=== PATIENT | male | born 1950 | race Caucasian/White ===

== ENCOUNTER 2016-10-07 16:57 | Emergency (ER) | payer MEDICARE ==
[~2016-10-07] VITALS: Ht 165.1 cm; Wt 69.5 kg
[2016-10-07] MEDS ORDERED: ATORVASTATIN CA10 MG PO (17:18)
[2016-10-07] MEDS ORDERED: ALFUZOSIN HCL E10 MG PO (17:19)
[2016-10-07] MEDS ORDERED: FINASTERIDE5 MG PO (17:20)
[2016-10-07] MEDS ORDERED: DEPO-TESTOS100 MG/ML IM (17:21)
[2016-10-07] MEDS ORDERED: ULTRAM50 M1 PO (17:49)
[2016-10-07] MEDS ORDERED: BENADRYL 50MG C50 MG PO (17:49)
[2016-10-07] MEDS ORDERED: BENADRY2 EX (17:49)
[2016-10-07 18:09] VITALS: BP 159/77
== END 2016-10-07 18:09 | disposition home or self-care (01) ==
LOC: ED 16:57
DX: S50.862A Insect bite (nonvenomous) of left forearm, initial encounter (principal); W57.XXXA Bitten or stung by nonvenomous insect and other nonvenomous arthropods, initial encounter; Y92.009 Unspecified place in unspecified non-institutional (private) residence as the place of occurrence of the external cause

== ENCOUNTER 2021-12-26 15:29 | Inpatient (IN) | payer MEDICARE ==
[~2021-12-26] VITALS: Ht 165.1 cm; Wt 54.5 kg
[2021-12-26] VITALS (13 sets, daily range): BP systolic 107–205; BP diastolic 52–92
[~2021-12-26 15:29] MED LIST: ALFUZOSIN HCL E10 MG PO; ATORVASTATIN CA10 MG PO; BENADRY2 EX; BENADRYL 50MG C50 MG PO; DEPO-TESTOS100 MG/ML IM; FINASTERIDE5 MG PO; ULTRAM50 M1 PO
[2021-12-26 15:59] LABS: HEMATOCRIT 48.1 % (39.0-50.0); IMMATURE GRANULOCYTES 0.1 % (0.0-5.0); MEAN CELL VOLUME 92.5 fL CALC (80.0-100.0); MEAN CORPUSCULAR HGB 30.8 pG CALC (26.0-32.0); MEAN CORPUSCULAR HGB CONC 33.3 g/dL CAL (32.0-36.0); NEUT# 6.45 thou/uL (1.82-7.42); RED BLOOD COUNT 5.2 mill/uL (4.70-6.10); RED CELL DISTRI WIDTH 12.1 % (11.5-15.5)
[2021-12-26 16:13] LABS: ALBUMIN 3.7 g/dL (3.2-5.0); ALKALINE PHOSPHATASE 83 u/l (38-126); ANION GAP 9 (6-22 (CALC)); BILIRUBIN, TOTAL 0.5 mg/dL (0.0-1.4); BUN 21 mg/dL (8-23); BUN/CREATININE RATIO 25 (12-20 (CALC)); CARBON DIOXIDE 35 mmol/l (22-30); CHLORIDE 102 mmol/l (95-108); CREATININE 0.9 mg/dL (0.7-1.3); GFR FOR AFR.AMER. > 60 ML/MIN (>=60 (CALC)); GFR OTHER RACES > 60 ML/MIN (>=60 (CALC)); POTASSIUM 3.6 mmol/l (3.5-5.1); SGOT/AST 20 u/l (19-48); SODIUM 142 mmol/l (137-146); TOTAL PROTEIN 6.3 g/dL (6.3-8.2)
[2021-12-27] VITALS (8 sets, daily range): BP systolic 103–144; BP diastolic 54–70
[2021-12-28 00:14] VITALS: BP 115/57
[2021-12-28 04:45] VITALS: BP 121/63
[2021-12-28 10:40] VITALS: BP 145/75
[2021-12-28 15:58] VITALS: BP 122/62
[2021-12-28 16:37] VITALS: BP 122/52
[2021-12-28 19:05] VITALS: BP 121/61
[2021-12-29 00:14] VITALS: BP 125/60
[2021-12-29 04:54] VITALS: BP 119/57
[2021-12-29 05:17] LABS: HEMATOCRIT 43.3 % (39.0-50.0); HEMOGLOBIN 14.2 g/dl (14.0-18.0); MEAN CELL VOLUME 93.9 fL CALC (80.0-100.0); MEAN CORPUSCULAR HGB 30.8 pG CALC (26.0-32.0); MEAN CORPUSCULAR HGB CONC 32.8 g/dL CAL (32.0-36.0); RED BLOOD COUNT 4.61 mill/uL (4.70-6.10); RED CELL DISTRI WIDTH 12.1 % (11.5-15.5)
[2021-12-29 05:40] LABS: BUN 22 mg/dL (8-23); BUN/CREATININE RATIO 31 (12-20 (CALC)); CARBON DIOXIDE 36 mmol/l (22-30); CHLORIDE 101 mmol/l (95-108); CREATININE 0.7 mg/dL (0.7-1.3); GFR FOR AFR.AMER. > 60 ML/MIN (>=60 (CALC)); GFR OTHER RACES > 60 ML/MIN (>=60 (CALC)); MAGNESIUM 2.4 mg/dL (1.6-2.3); SODIUM 138 mmol/l (137-146)
[2021-12-29 05:42] LABS: ANION GAP 6 (6-22 (CALC)); POTASSIUM 4.5 mmol/l (3.5-5.1)
[2021-12-29 06:27] VITALS: BP 119/57
[2021-12-29] MEDS ORDERED: PREDNISONE10 MG PO (13:36)
[2021-12-29] MEDS ORDERED: ZITHROMAX250 MG PO (13:37)
[2021-12-29 14:47] VITALS: BP 119/57
== END 2021-12-29 15:41 | disposition home or self-care (01) | DRG 190 ==
LOC: ED 15:29 → ED-I 16:26 → ED 16:44 → MS2 16:45
PROVIDERS: Family Medicine; ADMIT Internal Medicine; ATTEND Internal Medicine
DX: J43.9 Emphysema, unspecified (principal); J96.01 Acute respiratory failure with hypoxia; J96.02 Acute respiratory failure with hypercapnia; C85.90 Non-Hodgkin lymphoma, unspecified, unspecified site; I10 Essential (primary) hypertension; F17.210 Nicotine dependence, cigarettes, uncomplicated; Z86.73 Personal history of transient ischemic attack (TIA), and cerebral infarction without residual deficits; Z20.822 Contact with and (suspected) exposure to COVID-19
CPT/HCPCS: G0378; J1650

== ENCOUNTER 2022-01-09 02:11 | Inpatient (IN) | payer MEDICARE ==
[~2022-01-09] VITALS: Ht 165.1 cm; Wt 54.1 kg
[2022-01-09] VITALS (82 sets, daily range): BP systolic 91–183; BP diastolic 48–116
[~2022-01-09 02:11] MED LIST changes: +PREDNISONE10 MG PO; +ZITHROMAX250 MG PO
[2022-01-09 02:44] LABS: HEMATOCRIT 47.8 % (39.0-50.0); HEMOGLOBIN 15.1 g/dl (14.0-18.0); IMMATURE GRANULOCYTES 0.6 % (0.0-5.0); MEAN CELL VOLUME 97.4 fL CALC (80.0-100.0); MEAN CORPUSCULAR HGB 30.8 pG CALC (26.0-32.0); MEAN CORPUSCULAR HGB CONC 31.6 g/dL CAL (32.0-36.0); NEUT# 19.89 thou/uL (1.82-7.42); RED BLOOD COUNT 4.91 mill/uL (4.70-6.10); RED CELL DISTRI WIDTH 12.8 % (11.5-15.5)
[2022-01-09 03:00] LABS: ALBUMIN 3.6 g/dL (3.2-5.0); ALKALINE PHOSPHATASE 91 u/l (38-126); ANION GAP 8 (6-22 (CALC)); BILIRUBIN, TOTAL 0.7 mg/dL (0.0-1.4); BUN 18 mg/dL (8-23); BUN/CREATININE RATIO 21 (12-20 (CALC)); CARBON DIOXIDE 31 mmol/l (22-30); CHLORIDE 108 mmol/l (95-108); CREATININE 0.9 mg/dL (0.7-1.3); GFR FOR AFR.AMER. > 60 ML/MIN (>=60 (CALC)); GFR OTHER RACES > 60 ML/MIN (>=60 (CALC)); POTASSIUM 4.4 mmol/l (3.5-5.1); SODIUM 143 mmol/l (137-146); TOTAL PROTEIN 5.7 g/dL (6.3-8.2)
[2022-01-09 03:01] LABS: SGOT/AST 37 u/l (19-48)
[2022-01-09 03:11] LABS: MYOGLOBIN 38 ng/mL (0 - 121)
[2022-01-09 03:20] LABS: URINE BILIRUBIN - DIPSTICK NEGATIVE (NEGATIVE); URINE BLOOD DIPSTICK NEGATIVE (NEGATIVE); URINE COLOR YELLOW; URINE GLUCOSE - DIPSTICK NEGATIVE (NEGATIVE); URINE KETONE NEGATIVE (NEGATIVE); URINE LEUK ESTERASE NEGATIVE (NEGATIVE); URINE PH 5.5 (4.5-8.0); URINE PROTEIN - DIPSTICK NEGATIVE (NEG-TRACE); URINE SPECIFIC GRAVITY >=1.030; URINE UROBILINOGEN - DIPSTICK 0.2 E.U./dL (0.2)
[2022-01-09 03:52] LABS: URINE NITRITE - DIPSTICK NEGATIVE (Negative)
[2022-01-10] VITALS (33 sets, daily range): BP systolic 98–137; BP diastolic 47–87
[2022-01-10 05:18] LABS: HEMOGLOBIN 13.3 g/dl (14.0-18.0); IMMATURE GRANULOCYTES 0.7 % (0.0-5.0); MEAN CELL VOLUME 95.3 fL CALC (80.0-100.0); MEAN CORPUSCULAR HGB CONC 32.5 g/dL CAL (32.0-36.0); NEUT# 17.18 thou/uL (1.82-7.42); RED BLOOD COUNT 4.29 mill/uL (4.70-6.10)
[2022-01-10 05:29] LABS: HEMATOCRIT 40.9 % (39.0-50.0)
[2022-01-10 05:55] LABS: ALBUMIN 3.3 g/dL (3.2-5.0); ALKALINE PHOSPHATASE 78 u/l (38-126); ANION GAP 9 (6-22 (CALC)); BUN 21 mg/dL (8-23); BUN/CREATININE RATIO 30 (12-20 (CALC)); CARBON DIOXIDE 27 mmol/l (22-30); CHLORIDE 107 mmol/l (95-108); CREATININE 0.7 mg/dL (0.7-1.3); GFR FOR AFR.AMER. > 60 ML/MIN (>=60 (CALC)); GFR OTHER RACES > 60 ML/MIN (>=60 (CALC)); MAGNESIUM 2.2 mg/dL (1.6-2.3); POTASSIUM 4.4 mmol/l (3.5-5.1); SGOT/AST 29 u/l (19-48); SODIUM 139 mmol/l (137-146); TOTAL PROTEIN 5.2 g/dL (6.3-8.2)
[2022-01-10 06:00] LABS: BILIRUBIN, TOTAL 0.4 mg/dL (0.0-1.4)
== END 2022-01-10 09:45 | disposition short-term general hospital (02) | DRG 280 ==
LOC: ED 02:11 → ED-I 04:50 → ED 05:11 → ICU 05:12
PROVIDERS: Emergency Medicine; ADMIT Internal Medicine; ATTEND Internal Medicine
PROC: 5A09357 Assistance with Respiratory Ventilation, Less than 24 Consecutive Hours, Continuous Positive Airway Pressure (ICD-10-PCS; principal; 2022-01-09)
DX: I21.4 Non-ST elevation (NSTEMI) myocardial infarction (principal); J96.21 Acute and chronic respiratory failure with hypoxia; J96.22 Acute and chronic respiratory failure with hypercapnia; C85.90 Non-Hodgkin lymphoma, unspecified, unspecified site; J43.9 Emphysema, unspecified; F17.210 Nicotine dependence, cigarettes, uncomplicated; Z99.81 Dependence on supplemental oxygen; Z86.73 Personal history of transient ischemic attack (TIA), and cerebral infarction without residual deficits
CPT/HCPCS: G0378; J1650; Q9967

== ENCOUNTER 2022-09-20 06:07 | Day surgery (SDC) | payer MEDICARE ==
[~2022-09-20] VITALS: Ht 165.1 cm; Wt 61.2 kg
[~2022-09-20 06:07] MED LIST changes: +BAYER ASPIRIN E81 MG PO; +GABAPENTIN300 M2; +IPRATROPIU0.5 MG/3 M IN; +LIPITOR40 M1 PO; +PROSCAR5 MG PO; +TRELSTAR DEPO3.75 MG
[2022-09-20] MEDS ORDERED: TRELEGY ELLIPTA1 AER IN (06:54)
[2022-09-20 08:23] VITALS: BP 151/82
== END 2022-09-20 08:40 | disposition home or self-care (01) ==
LOC: ENDO 06:07 → ORM 07:30 → ENDO 08:40
PROVIDERS: ATTEND Internal Medicine Gastroenterology
PROC: 0DBN8ZX Excision of Sigmoid Colon, Via Natural or Artificial Opening Endoscopic, Diagnostic (ICD-10-PCS; principal; 2022-09-20)
PROC: 0DBL8ZX Excision of Transverse Colon, Via Natural or Artificial Opening Endoscopic, Diagnostic (ICD-10-PCS; 2022-09-20)
DX: Z12.11 Encounter for screening for malignant neoplasm of colon (principal); D12.3 Benign neoplasm of transverse colon; K63.5 Polyp of colon; K57.30 Diverticulosis of large intestine without perforation or abscess without bleeding; K64.8 Other hemorrhoids; K64.4 Residual hemorrhoidal skin tags; Z86.010 Personal history of colon polyps

== ENCOUNTER 2023-03-02 07:52 | Inpatient (IN) | payer MEDICARE ==
[2023-03-02] VITALS (15 sets, daily range): BP systolic 91–153; BP diastolic 43–62
[~2023-03-02] VITALS: Ht 152.4 cm; Wt 64.0 kg
[~2023-03-02 07:52] MED LIST changes: +TRELEGY ELLIPTA1 AER IN
[2023-03-02 08:14] LABS: BASO% 0.1 % (0-3); HEMATOCRIT 41.2 % (39.0-50.0); HEMOGLOBIN 13.8 g/dl (14.0-18.0); IMMATURE GRANULOCYTES 0.3 % (0.0-5.0); LYMPH% 4.7 % (15-41); MEAN CELL VOLUME 91.6 fL CALC (80.0-100.0); MEAN CORPUSCULAR HGB 30.7 pG CALC (26.0-32.0); MEAN CORPUSCULAR HGB CONC 33.5 g/dL CAL (32.0-36.0); MONO% 2.1 % (2-13); NEUT# 10.97 thou/uL (1.82-7.42); NEUT% 92.8 % (42-76); RED BLOOD COUNT 4.5 mill/uL (4.70-6.10); RED CELL DISTRI WIDTH 12.3 % (11.5-15.5)
[2023-03-02] MEDS ORDERED: ASPIRIN325 MG PO (08:19)
[2023-03-02 09:15] LABS: ALBUMIN 3.6 g/dL (3.2-5.0); ALKALINE PHOSPHATASE 72 u/l (38-126); ANION GAP 11 (6-22 (CALC)); BUN 26 mg/dL (8-23); BUN/CREATININE RATIO 26 (12-20 (CALC)); CARBON DIOXIDE 27 mmol/l (22-30); CHLORIDE 102 mmol/l (95-108); GFR FOR AFR.AMER. > 60 ML/MIN (>=60 (CALC)); GFR OTHER RACES > 60 ML/MIN (>=60 (CALC)); LIPASE < 10 u/l (23-300); POTASSIUM 4.3 mmol/l (3.5-5.1); SGOT/AST 37 u/l (19-48); SODIUM 136 mmol/l (137-146); TOTAL PROTEIN 5.6 g/dL (6.3-8.2)
[2023-03-02 09:21] LABS: BILIRUBIN, TOTAL 2.4 mg/dL (0.2-1.3)
[2023-03-02 13:16] LABS: URINE BLOOD DIPSTICK Trace-lysed (NEGATIVE); URINE GLUCOSE - DIPSTICK Negative (NEGATIVE); URINE KETONE Negative (NEGATIVE); URINE LEUK ESTERASE Negative (NEGATIVE); URINE PROTEIN - DIPSTICK 100 mg/dL (NEG-TRACE); URINE SPECIFIC GRAVITY >=1.030; URINE UROBILINOGEN - DIPSTICK 0.2 E.U./dL (0.2)
[2023-03-02 13:23] LABS: URINE COLOR Dark yellow; URINE NITRITE - DIPSTICK Positive (Negative)
[2023-03-02 13:39] LABS: URINE HYALINE CAST FEW lpf (NONE-RARE); URINE RBC 0-2 RBC/hpf (0-5); URINE TRANSITIONAL EPI. CELLS FEW hpf
[2023-03-03 00:33] VITALS: BP 93/48
[2023-03-03 04:44] VITALS: BP 91/52
[2023-03-03 06:23] LABS: BASO% 0.1 % (0-3); HEMOGLOBIN 12.9 g/dl (14.0-18.0); IMMATURE GRANULOCYTES 1.2 % (0.0-5.0); LYMPH% 3.9 % (15-41); MEAN CELL VOLUME 93.9 fL CALC (80.0-100.0); MEAN CORPUSCULAR HGB 30.3 pG CALC (26.0-32.0); MEAN CORPUSCULAR HGB CONC 32.3 g/dL CAL (32.0-36.0); MONO% 3.2 % (2-13); NEUT# 12.11 thou/uL (1.82-7.42); NEUT% 91.6 % (42-76); RED BLOOD COUNT 4.26 mill/uL (4.70-6.10); RED CELL DISTRI WIDTH 12.4 % (11.5-15.5)
[2023-03-03 06:51] VITALS: BP 102/51
[2023-03-03 09:29] LABS: ANION GAP 8 (6-22 (CALC)); BUN 40 mg/dL (8-23); BUN/CREATININE RATIO 34 (12-20 (CALC)); CARBON DIOXIDE 29 mmol/l (22-30); CHLORIDE 104 mmol/l (95-108); CREATININE 1.2 mg/dL (0.7-1.3); GFR FOR AFR.AMER. > 60 ML/MIN (>=60 (CALC)); GFR OTHER RACES 59 ML/MIN (>=60 (CALC)); POTASSIUM 4.1 mmol/l (3.5-5.1); SODIUM 137 mmol/l (137-146)
[2023-03-03 11:12] VITALS: BP 108/59
[2023-03-03 14:31] VITALS: BP 132/55
[2023-03-03 19:09] VITALS: BP 93/50
[2023-03-04] VITALS (7 sets, daily range): BP systolic 95–136; BP diastolic 50–63
[2023-03-04 04:46] LABS: HEMATOCRIT 34.1 % (39.0-50.0); HEMOGLOBIN 11.3 g/dl (14.0-18.0); IMMATURE GRANULOCYTES 0.5 % (0.0-5.0); LYMPH% 1.9 % (15-41); MEAN CELL VOLUME 93.2 fL CALC (80.0-100.0); MEAN CORPUSCULAR HGB 30.9 pG CALC (26.0-32.0); MEAN CORPUSCULAR HGB CONC 33.1 g/dL CAL (32.0-36.0); MONO% 3.1 % (2-13); NEUT# 13.2 thou/uL (1.82-7.42); NEUT% 94.5 % (42-76); RED BLOOD COUNT 3.66 mill/uL (4.70-6.10); RED CELL DISTRI WIDTH 12.4 % (11.5-15.5)
[2023-03-04 05:07] LABS: ALKALINE PHOSPHATASE 71 u/l (38-126); ANION GAP 9 (6-22 (CALC)); BUN 37 mg/dL (8-23); BUN/CREATININE RATIO 38 (12-20 (CALC)); CARBON DIOXIDE 25 mmol/l (22-30); CHLORIDE 109 mmol/l (95-108); GFR FOR AFR.AMER. > 60 ML/MIN (>=60 (CALC)); GFR OTHER RACES > 60 ML/MIN (>=60 (CALC)); MAGNESIUM 2.4 mg/dL (1.6-2.3); POTASSIUM 3.9 mmol/l (3.5-5.1); SGOT/AST 27 u/l (19-48); SODIUM 139 mmol/l (137-146)
[2023-03-04 05:08] LABS: ALBUMIN 2.4 g/dL (3.2-5.0); BILIRUBIN, TOTAL 0.2 mg/dL (0.2-1.3); TOTAL PROTEIN 4.3 g/dL (6.3-8.2)
[2023-03-05 05:58] LABS: BASO% 0.1 % (0-3); HEMOGLOBIN 11.6 g/dl (14.0-18.0); IMMATURE GRANULOCYTES 0.9 % (0.0-5.0); LYMPH% 1.4 % (15-41); MEAN CELL VOLUME 92.3 fL CALC (80.0-100.0); MEAN CORPUSCULAR HGB 30.6 pG CALC (26.0-32.0); MEAN CORPUSCULAR HGB CONC 33.1 g/dL CAL (32.0-36.0); MONO% 2.9 % (2-13); NEUT# 17.45 thou/uL (1.82-7.42); NEUT% 94.7 % (42-76); RED BLOOD COUNT 3.79 mill/uL (4.70-6.10); RED CELL DISTRI WIDTH 12.6 % (11.5-15.5)
[2023-03-05 06:25] LABS: ALBUMIN 2.6 g/dL (3.2-5.0); ALKALINE PHOSPHATASE 103 u/l (38-126); ANION GAP 6 (6-22 (CALC)); BUN 26 mg/dL (8-23); BUN/CREATININE RATIO 36 (12-20 (CALC)); CARBON DIOXIDE 28 mmol/l (22-30); CHLORIDE 114 mmol/l (95-108); CREATININE 0.7 mg/dL (0.7-1.3); GFR FOR AFR.AMER. > 60 ML/MIN (>=60 (CALC)); GFR OTHER RACES > 60 ML/MIN (>=60 (CALC)); MAGNESIUM 2.5 mg/dL (1.6-2.3); POTASSIUM 3.7 mmol/l (3.5-5.1); SODIUM 144 mmol/l (137-146); TOTAL PROTEIN 4.6 g/dL (6.3-8.2)
[2023-03-05 06:39] LABS: BILIRUBIN, TOTAL 0.3 mg/dL (0.2-1.3); SGOT/AST 49 u/l (19-48)
[2023-03-05 08:54] VITALS: BP 174/85
[2023-03-05 11:48] VITALS: BP 154/73
[2023-03-05 16:22] VITALS: BP 164/76
[2023-03-05 19:31] VITALS: BP 159/75
[2023-03-05 22:43] VITALS: BP 172/83
[2023-03-06 03:14] VITALS: BP 190/89
[2023-03-06 05:08] LABS: HEMATOCRIT 37.7 % (39.0-50.0); HEMOGLOBIN 12.4 g/dl (14.0-18.0); IMMATURE GRANULOCYTES 5.2 % (0.0-5.0); LYMPH% 2.1 % (15-41); MEAN CELL VOLUME 92.4 fL CALC (80.0-100.0); MEAN CORPUSCULAR HGB 30.4 pG CALC (26.0-32.0); MEAN CORPUSCULAR HGB CONC 32.9 g/dL CAL (32.0-36.0); MONO% 3.4 % (2-13); NEUT# 17.89 thou/uL (1.82-7.42); NEUT% 89.3 % (42-76); RED BLOOD COUNT 4.08 mill/uL (4.70-6.10)
[2023-03-06 05:35] LABS: ANION GAP 8 (6-22 (CALC)); BUN 25 mg/dL (8-23); BUN/CREATININE RATIO 32 (12-20 (CALC)); CARBON DIOXIDE 30 mmol/l (22-30); CHLORIDE 111 mmol/l (95-108); CREATININE 0.8 mg/dL (0.7-1.3); GFR FOR AFR.AMER. > 60 ML/MIN (>=60 (CALC)); GFR OTHER RACES > 60 ML/MIN (>=60 (CALC)); POTASSIUM 4.3 mmol/l (3.5-5.1); SODIUM 144 mmol/l (137-146)
[2023-03-06 07:24] VITALS: BP 169/89
[2023-03-06 10:10] VITALS: BP 141/79
[2023-03-06 14:59] VITALS: BP 148/74
[2023-03-06 19:14] VITALS: BP 159/69
[2023-03-06 22:57] VITALS: BP 164/76
[2023-03-07 04:00] VITALS: BP 157/74
[2023-03-07 04:13] VITALS: BP 157/74
[2023-03-07 05:07] LABS: BASO% 0.1 % (0-3); HEMATOCRIT 36.9 % (39.0-50.0); HEMOGLOBIN 11.9 g/dl (14.0-18.0); LYMPH% 3.9 % (15-41); MEAN CELL VOLUME 93.4 fL CALC (80.0-100.0); MEAN CORPUSCULAR HGB 30.1 pG CALC (26.0-32.0); MEAN CORPUSCULAR HGB CONC 32.2 g/dL CAL (32.0-36.0); MONO% 2.6 % (2-13); NEUT# 14.96 thou/uL (1.82-7.42); NEUT% 85.8 % (42-76); RED BLOOD COUNT 3.95 mill/uL (4.70-6.10); RED CELL DISTRI WIDTH 13.1 % (11.5-15.5)
[2023-03-07 05:21] LABS: IMMATURE GRANULOCYTES 7.6 % (0.0-5.0)
[2023-03-07 05:25] LABS: ANION GAP 6 (6-22 (CALC)); BUN 28 mg/dL (8-23); BUN/CREATININE RATIO 41 (12-20 (CALC)); CARBON DIOXIDE 29 mmol/l (22-30); CHLORIDE 110 mmol/l (95-108); CREATININE 0.7 mg/dL (0.7-1.3); GFR FOR AFR.AMER. > 60 ML/MIN (>=60 (CALC)); GFR OTHER RACES > 60 ML/MIN (>=60 (CALC)); MAGNESIUM 2.7 mg/dL (1.6-2.3); POTASSIUM 4.5 mmol/l (3.5-5.1); SODIUM 141 mmol/l (137-146)
[2023-03-07 07:14] VITALS: BP 173/83
[2023-03-07 10:44] VITALS: BP 151/64
[2023-03-07 16:09] VITALS: BP 176/81
[2023-03-07 19:05] VITALS: BP 164/81
[2023-03-08 00:11] VITALS: BP 126/66
[2023-03-08 04:51] VITALS: BP 146/71
[2023-03-08 05:42] LABS: HEMATOCRIT 39.4 % (39.0-50.0); HEMOGLOBIN 12.7 g/dl (14.0-18.0); IMMATURE GRANULOCYTES 5.4 % (0.0-5.0); LYMPH% 3.4 % (15-41); MEAN CELL VOLUME 92.3 fL CALC (80.0-100.0); MEAN CORPUSCULAR HGB 29.7 pG CALC (26.0-32.0); MEAN CORPUSCULAR HGB CONC 32.2 g/dL CAL (32.0-36.0); MONO% 1.8 % (2-13); NEUT# 19.5 thou/uL (1.82-7.42); NEUT% 89.4 % (42-76); RED BLOOD COUNT 4.27 mill/uL (4.70-6.10)
[2023-03-08 06:09] LABS: ALBUMIN 2.5 g/dL (3.2-5.0); ALKALINE PHOSPHATASE 100 u/l (38-126); ANION GAP 7 (6-22 (CALC)); CARBON DIOXIDE 32 mmol/l (22-30); CHLORIDE 104 mmol/l (95-108); MAGNESIUM 2.4 mg/dL (1.6-2.3); POTASSIUM 4.6 mmol/l (3.5-5.1); SGOT/AST 27 u/l (19-48); SODIUM 139 mmol/l (137-146); TOTAL PROTEIN 4.6 g/dL (6.3-8.2)
[2023-03-08 06:13] LABS: BUN 34 mg/dL (8-23); BUN/CREATININE RATIO 43 (12-20 (CALC)); CREATININE 0.8 mg/dL (0.7-1.3); GFR FOR AFR.AMER. > 60 ML/MIN (>=60 (CALC)); GFR OTHER RACES > 60 ML/MIN (>=60 (CALC))
[2023-03-08 06:40] VITALS: BP 145/72
[2023-03-08 06:44] LABS: BILIRUBIN, TOTAL 0.5 mg/dL (0.2-1.3)
[2023-03-08 10:51] VITALS: BP 132/64
[2023-03-08] MEDS ORDERED: LEVOFLOXACIN750 MG PO (12:22)
[2023-03-08] MEDS ORDERED: PREDNISONE10 MG PO (12:22)
== END 2023-03-08 14:17 | disposition home health service (06) | DRG 871 ==
LOC: ED 07:52 → ED-I 09:38 → ED 09:51 → ED-I 09:52 → MS2 13:38
PROVIDERS: Family Medicine; Nurse Practitioner Family; ADMIT Student in an Organized Health Care Education/Training Program; ATTEND Student in an Organized Health Care Education/Training Program
DX: A40.3 Sepsis due to Streptococcus pneumoniae (principal); J18.9 Pneumonia, unspecified organism; J96.21 Acute and chronic respiratory failure with hypoxia; R65.20 Severe sepsis without septic shock; C85.90 Non-Hodgkin lymphoma, unspecified, unspecified site; J44.1 Chronic obstructive pulmonary disease with (acute) exacerbation; J44.0 Chronic obstructive pulmonary disease with (acute) lower respiratory infection; J43.9 Emphysema, unspecified; K59.00 Constipation, unspecified; F17.210 Nicotine dependence, cigarettes, uncomplicated; Z99.81 Dependence on supplemental oxygen; Z86.73 Personal history of transient ischemic attack (TIA), and cerebral infarction without residual deficits; Z20.822 Contact with and (suspected) exposure to COVID-19
CPT/HCPCS: J0692; J1650